=== PATIENT | male | born 1970 | race Caucasian/White ===

== ENCOUNTER 2023-04-20 08:23 | Day surgery (SDC) | payer OTHER ==
[2023-04-19 13:52] VITALS: BMI 32.3
[2023-04-20] MEDS ORDERED: Oxymetazoline HCl 0.05% (30 ML BOT) ONE ×2 (10:59→12:03)
[2023-04-20] MEDS ORDERED: Lidocaine 1% (PF) 30 ML VIAL ONE (10:59)
[2023-04-20] MEDS ORDERED: EPINEPHrine 1 MG/ML AMP ONE (10:59)
[2023-04-20] MEDS ORDERED: fentaNYL PF 100 MCG/2 ML SYRINGE ONE (11:07)
[2023-04-20] MEDS ORDERED: SUGAMMADEX SODIUM 200 MG/2 ML VIAL ONE (11:08)
[2023-04-20] MEDS ORDERED: ePHEDrine Sulfate 50 MG/10 ML VIAL ONE (11:49)
[2023-04-20] MEDS ORDERED: Lidocaine 1% PF 5 ML VIAL ONE (11:49)
[2023-04-20] MEDS ORDERED: Ondansetron PF 4 MG/2 ML Vial ONE (11:49)
[2023-04-20] MEDS ORDERED: Rocuronium Bromide 10 MG/ML (10ML VIAL) ONE (11:49)
[2023-04-20] MEDS ORDERED: PROPOFOL 200 MG/20 ML VIAL ONE (11:49)
[2023-04-20] MEDS ORDERED: Dexamethasone 20 MG/5 ML VIAL ONE (11:49)
[2023-04-20] MEDS ORDERED: fentaNYL 50 mcg/mL 1 mL Vial ONE (13:12)
[2023-04-20] MEDS ORDERED: HYDROcodone/Acetaminophen 5/325 mg Tablet ONE (14:10)
== END 2023-04-20 14:55 | disposition home or self-care (01) ==
LOC: SDC 08:23
PROVIDERS: ATTEND Specialist
PROC: 09BM0ZZ Excision of Nasal Septum, Open Approach (ICD-10-PCS; principal; 2023-04-20)
PROC: 09TL8ZZ Resection of Nasal Turbinate, Via Natural or Artificial Opening Endoscopic (ICD-10-PCS; principal; 2023-04-20)
PROC: 099R8ZZ Drainage of Left Maxillary Sinus, Via Natural or Artificial Opening Endoscopic (ICD-10-PCS; principal; 2023-04-20)
PROC: 099Q8ZZ Drainage of Right Maxillary Sinus, Via Natural or Artificial Opening Endoscopic (ICD-10-PCS; principal; 2023-04-20)
DX: J34.2 Deviated nasal septum (principal); J34.3 Hypertrophy of nasal turbinates; J01.01 Acute recurrent maxillary sinusitis; J34.9 Unspecified disorder of nose and nasal sinuses; Z79.899 Other long term (current) drug therapy
CPT/HCPCS: 93005; 93010; J0171; J1100; J2001; J2405; J2704; J3010